=== PATIENT | female | born 1960 | race Hispanic/Latino ===

== ENCOUNTER 2016-04-20 04:13 | Emergency (ER) | payer OTHER ==
[~2016-04-20] VITALS: Ht 167.6 cm; Wt 57.1 kg
[~2016-04-20 04:13] MED LIST: BACTRIM,SEPT1 TABLET PO; CIPROFLOXACIN500 M1 PO; PYRIDIUM100 MG PO
[2016-04-20 05:28] LABS: CHLORIDE 104 mEq/L (99-109); POTASSIUM 4.4 mEq/L (3.7-5.4); SODIUM 140 mEq/L (136-147)
[2016-04-20 05:29] LABS: ADD MIUA? YES; BILIRUBIN NEGATIVE; BLOOD LARGE; COLOR YELLOW ((YELLOW)); GLUCOSE (STRIP) NEGATIVE; KETONES NEGATIVE; LEUKOCYTES LARGE; NITRITE NEGATIVE; PH, URINE 6.5 (5-8); PROTEIN (STRIP) TRACE; SPECIFIC GRAVITY 1.005 (1.000-1.030); UROBILINOGEN 0.2 MG/DL (0.2-1.0)
[2016-04-20 05:30] LABS: GLUCOSE 94 mg/dL (70-99)
[2016-04-20 05:31] LABS: ANION GAP 11 MEQ/L (2-14)
[2016-04-20 05:34] LABS: GFR ESTIMATE (CALCULATED) > 59 mL/min/
[2016-04-20 05:35] LABS: UREA NITROGEN (BUN) 15 mg/dL (9-23)
[2016-04-20 05:55] LABS: RED BLOOD CELLS TNTC /HPF (0-5); WHITE BLOOD CELLS TNTC /HPF (0-5)
[2016-04-20 05:56] LABS: BACTERIA 1+; CASTS NONE SEEN /LPF; CRYSTALS NONE SEEN; EPITHELIAL CELLS 2+; MUCUS NONE SEEN; UCUL ADDED? YES
[2016-04-20 06:38] LABS: HEMATOCRIT 38.8 % (36.0-46.0); MCHC 31.7 G/DL (30.0-36.0); MCV 88.4 FL (83-99); RBC DIS.WIDTH-CV 14.9 % (11.8-14.6); RBC DIS.WIDTH-SD 47.6 % (39-53); RED BLOOD COUNT 4.39 M/uL (3.80-5.20); WHITE BLOOD COUNT 9.1 K/uL (4.1-10.2)
[2016-04-20] MEDS ORDERED: CIPRO500 MG PO (06:49)
[2016-04-20 07:45] VITALS: BP 103/66
[2016-04-20 07:53] LABS: MEAN PLAT.VOLUME 13.8 uM^3 (9.5-12.4); PLATELET COUNT 216 K/uL (156-360)
== END 2016-04-20 10:18 | disposition home or self-care (01) ==
LOC: EME 04:13
PROVIDERS: Emergency Medicine
DX: N30.01 Acute cystitis with hematuria (principal); R93.5 Abnormal findings on diagnostic imaging of other abdominal regions, including retroperitoneum; F17.200 Nicotine dependence, unspecified, uncomplicated; Z90.710 Acquired absence of both cervix and uterus
CPT/HCPCS: 74177; 76857; 80048; 81003; 85027; 86850; 86900; 86901; 87086; 99281; 99285

== ENCOUNTER 2017-08-05 19:51 | Emergency (ER) | payer OTHER ==
[~2017-08-05] VITALS: Ht 167.6 cm; Wt 54.5 kg
[~2017-08-05 19:51] MED LIST changes: +CIPRO500 MG PO
[2017-08-05 21:18] LABS: HEMATOCRIT 39.2 % (36.0-46.0); HEMOGLOBIN 12.8 G/DL (11.9-15.5); MCH 29.4 PG (29.0-34.0); MCHC 32.7 G/DL (30.0-36.0); MCV 89.9 FL (83-99); RBC DIS.WIDTH-CV 14.5 % (11.8-14.6); RBC DIS.WIDTH-SD 47.9 % (39-53); RED BLOOD COUNT 4.36 M/uL (3.80-5.20); WHITE BLOOD COUNT 15.8 K/uL (4.1-10.2)
[2017-08-05 21:36] LABS: APPEARANCE SL.HAZY ((CLEAR)); BILIRUBIN NEGATIVE; BLOOD MODERATE; COLOR YELLOW ((YELLOW)); GLUCOSE (STRIP) NEGATIVE; KETONES 5; LEUKOCYTES LARGE; NITRITE NEGATIVE; PROTEIN (STRIP) NEGATIVE; UROBILINOGEN 0.2 MG/DL (0.2-1.0)
[2017-08-05 21:41] LABS: BACTERIA RARE /HPF; EPITHELIAL CELLS RARE /HPF; MUCUS 1+ /LPF; UCUL ADDED? YES; WHITE BLOOD CELLS 30-40 /HPF (0-5)
[2017-08-05 21:57] LABS: ALBUMIN 4.2 G/DL (3.2-4.8); ALKALINE PHOSPHATASE 106 IU/L (3-129); ALT (GPT) 11 IU/L (3-49); AST (GOT) 18 IU/L (2-34); CHLORIDE 98 MEQ/L (99-109); CREATININE 0.9 MG/DL (0.6-1.3); GFR ESTIMATE (CALCULATED) > 59 mL/min/; GLUCOSE 97 mg/dL (70-99); POTASSIUM 4.2 MEQ/L (3.7-5.4); SODIUM 134 MEQ/L (136-147); TOTAL BILIRUBIN 0.7 MG/DL (0.0-1.0); TOTAL PROTEIN 8.6 G/DL (6.4-8.3); UREA NITROGEN (BUN) 11 mg/dL (9-23)
[2017-08-05 22:04] LABS: PLAT.SUFFICIENCY ADEQUATE; PLATELET COUNT 262 K/uL (156-360)
[2017-08-06] MEDS ORDERED: KEFLEX500 MG PO (00:48)
[2017-08-06] MEDS ORDERED: MOTRIN600 MG PO (00:49)
[2017-08-06 01:16] LABS: SOURCE SWAB
[2017-08-06 01:17] VITALS: BP 110/66
== END 2017-08-06 01:17 | disposition home or self-care (01) ==
LOC: EME 19:51
PROVIDERS: Physician Assistant
DX: N39.0 Urinary tract infection, site not specified (principal); N89.8 Other specified noninflammatory disorders of vagina; F17.200 Nicotine dependence, unspecified, uncomplicated; Z90.710 Acquired absence of both cervix and uterus; Z87.440 Personal history of urinary (tract) infections
CPT/HCPCS: 74176; 80053; 81003; 83605; 85027; 87086; 87210; 87491; 87591; 99281; 99284; J1885

== ENCOUNTER 2017-08-16 12:09 | Emergency (ER) | payer OTHER ==
[~2017-08-16] VITALS: Ht 167.6 cm; Wt 56.2 kg
[~2017-08-16 12:09] MED LIST changes: +KEFLEX500 MG PO; +MOTRIN600 MG PO
[2017-08-16 13:05] LABS: HEMATOCRIT 38.1 % (36.0-46.0); MCH 29.2 PG (29.0-34.0); MCHC 31.5 G/DL (30.0-36.0); MCV 92.7 FL (83-99); RBC DIS.WIDTH-SD 46.8 % (39-53); RED BLOOD COUNT 4.11 M/uL (3.80-5.20); WHITE BLOOD COUNT 7.4 K/uL (4.1-10.2)
[2017-08-16 13:12] LABS: ALBUMIN 3.9 g/dL (3.2-4.8)
[2017-08-16 13:13] LABS: CHLORIDE 105 mEq/L (99-109); SODIUM 142 mEq/L (136-147)
[2017-08-16 13:15] LABS: GLUCOSE 82 mg/dL (70-99); TOTAL PROTEIN 8.3 g/dL (6.4-8.3)
[2017-08-16 13:17] LABS: TOTAL BILIRUBIN 0.2 mg/dL (0.0-1.0)
[2017-08-16 13:18] LABS: ALKALINE PHOSPHATASE 104 IU/L (3-129)
[2017-08-16 13:19] LABS: CREATININE 0.8 mg/dL (0.6-1.3); GFR ESTIMATE (CALCULATED) > 59 mL/min/
[2017-08-16 13:20] LABS: AST (GOT) 18 IU/L (2-34); UREA NITROGEN (BUN) 12 mg/dL (9-23)
[2017-08-16 13:22] LABS: ALT (GPT) 14 IU/L (3-49)
[2017-08-16 13:26] LABS: APPEARANCE CLEAR ((CLEAR)); BILIRUBIN NEGATIVE; BLOOD SMALL; COLOR YELLOW ((YELLOW)); GLUCOSE (STRIP) NEGATIVE; KETONES NEGATIVE; LEUKOCYTES MODERATE; NITRITE NEGATIVE; PROTEIN (STRIP) NEGATIVE; SPECIFIC GRAVITY 1.014 (1.000-1.030); UROBILINOGEN 0.2 MG/DL (0.2-1.0)
[2017-08-16 13:47] LABS: PLAT.SUFFICIENCY ADEQUATE; PLATELET COUNT 309 K/uL (156-360)
[2017-08-16 13:58] LABS: RED BLOOD CELLS 0-5 /HPF (0-5)
[2017-08-16 13:59] LABS: BACTERIA NONE SEEN /HPF; EPITHELIAL CELLS RARE /HPF; MUCUS NONE SEEN /LPF; UCUL ADDED? YES
[2017-08-16] MEDS ORDERED: PYRIDIUM200 MG PO (14:31)
[2017-08-16] MEDS ORDERED: MACROBID100 MG PO (14:31)
[2017-08-16 15:01] VITALS: BP 126/74
== END 2017-08-16 15:02 | disposition home or self-care (01) ==
LOC: EME 12:09
DX: N39.0 Urinary tract infection, site not specified (principal); F17.200 Nicotine dependence, unspecified, uncomplicated; Z88.1 Allergy status to other antibiotic agents
CPT/HCPCS: 80053; 81003; 85027; 87086; 99281; 99284